=== PATIENT | male | born 1965 | race Caucasian/White ===

== ENCOUNTER → 2019-09-08 | Outpatient (CLI) | payer BC ==
[~2019-09-08] MED LIST: ACCUNEB SO1.25 MG/1 INH; ADVAIR HFA115 MCG/21 INH; PREVACID30 MG PO; PROSCAR 5MG TABL5 MG PO; RAPAFLO8 MG PO
== END ==
LOC: SJCVCIMAG 09-05 09:23
DX: I51.7 Cardiomegaly (principal)